=== PATIENT | male | born 1990 | race American Indian/Alaskan Native ===

== ENCOUNTER 2017-08-12 20:07 | Emergency (ER) | payer SELFPAY ==
--- NOTE | 2017-08-12 21:52 | Emergency Department Report ---
ED Fall HPI - General Chief Complaint: Fall Stated Complaint: FELL OFF LADDER Time Seen by Provider: 08/12/17 21:42 Source: patient Mode of arrival: Ambulatory - History of Present Illness Initial Comments: Patient is a 27 years old male with no significant past medical history he came in for an evaluation of after full patient stated that he was cleaning a roof and he fell off the ladder about 6 feet and landed on his back is complaining of headache neck and lower back pain. Patient stated that he think he passed out for approximately 2 minutes. Currently patient denying any muscle weakness no numbness or tingling sensation no bowel or bladder incontinence. MD Complaint: fall -: Sudden, This evening Fall From: other (from a ladder) When Fall Occurred: just prior to arrival Fall Witnessed: yes, by family Place Fall Occurred: other (work) Loss of Consciousness: yes Prolonged Down Time?: no Symptoms Prior to Fall: none Location: head, neck, back Severity scale (0 -10): 5 Quality: sharp - Related Data Allergies Allergy/AdvReac Type Severity Reaction Status Date / Time No Known Allergies Allergy Unverified 08/12/17 20:38 ED Review of Systems ROS: Stated complaint: FELL OFF LADDER Other details as noted in HPI Comment: All other systems reviewed and negative Constitutional: denies: chills, fever Respiratory: denies: cough, shortness of breath, SOB with exertion Cardiovascular: denies: chest pain, palpitations Gastrointestinal: denies: abdominal pain, nausea, vomiting Musculoskeletal: back pain. denies: joint swelling, arthralgia Skin: denies: rash Neurological: headache. denies: weakness, numbness, paresthesias, confusion, abnormal gait, vertigo ED Past Medical Hx - Past Medical History Previous Medical History?: No - Surgical History Past Surgical History?: No - Social History Smoking Status: Never Smoker Substance Use Type: None ED Physical Exam - General Limitations: No Limitations General appearance: alert, in no apparent distress - Head Head exam: Present: atraumatic, normocephalic - Eye Eye exam: Present: normal appearance, PERRL Pupils: Present: normal accommodation - ENT ENT exam: Present: normal exam, normal orophraynx, mucous membranes moist, TM's normal bilaterally, normal external ear exam - Neck Neck exam: Present: normal inspection, full ROM (decreased range of motion). Absent: tenderness, meningismus, lymphadenopathy, thyromegaly - Respiratory Respiratory exam: Present: normal lung sounds bilaterally. Absent: respiratory distress, wheezes, rales, rhonchi, stridor, chest wall tenderness, accessory muscle use, decreased breath sounds, prolonged expiratory - Cardiovascular Cardiovascular Exam: Present: regular rate, normal rhythm, normal heart sounds - GI/Abdominal GI/Abdominal exam: Present: soft, normal bowel sounds. Absent: distended, tenderness, guarding, rebound, rigid - Extremities Exam Extremities exam: Present: normal inspection, full ROM, normal capillary refill - Back Exam Back exam: Present: tenderness (lumbar), paraspinal tenderness. Absent: CVA tenderness (R), CVA tenderness (L), muscle spasm - Neurological Exam Neurological exam: Present: alert, oriented X3, CN II-XII intact, normal gait. Absent: motor sensory deficit - Skin Skin exam: Present: warm, intact, normal color ED Course Vital Signs 08/12/17 08/12/17 08/12/17 20:38 21:36 21:45 Temperature 97.9 F Pulse Rate 60 67 Respiratory 9 L Rate Blood Pressure 122/76 135/86 Blood Pressure [Right] O2 Sat by Pulse 99 100 100 Oximetry 08/12/17 21:46 Temperature 97.9 F Pulse Rate 54 L Respiratory 12 Rate Blood Pressure Blood Pressure 135/86 [Right] O2 Sat by Pulse 100 Oximetry - Reevaluation(s) Reevaluation #1: 08/12/17 23:10 Patient stated that he is feeling better about his CT results and advised to follow-up with his primary care physician ED Medical Decision Making - Lab Data Result diagrams: 08/12/17 21:41 08/12/17 21:41 - Radiology Data Radiology results: report reviewed CT brain, CT C-spine, CT lumbar unremarkable. Critical care attestation.: If time is entered above; I have spent that time in minutes in the direct care of this critically ill patient, excluding procedure time. ED Disposition Clinical Impression: Fall, Head injury Disposition: DC-01 TO HOME OR SELFCARE Is pt being admited?: No Condition: Stable Instructions: Minor Head Injury (ED) Referrals: PRIMARY CARE, [Primary Care Provider] - 3-5 Days
[2017-08-12 22:09] LABS: Anion Gap 13 mmol/L; BUN/Creatinine Ratio 7; Blood Urea Nitrogen 6 mg/dL (9-20); Calcium 8.8 mg/dL (8.4-10.2); Carbon Dioxide 29 mmol/L (22-30); Chloride 101.9 mmol/L (98-107); Glucose 84 mg/dL (75-100); Potassium 4.1 mmol/L (3.6-5.0); Sodium 140 mmol/L (137-145)
[2017-08-12 22:12] LABS: Hematocrit 38.9 % (35.5-45.6); Mean Corpuscular HGB Conc 33 % (32-34); Mean Corpuscular Hemoglobin 32 pg (28-32); Mean Corpuscular Volume 97 fl (84-94); Platelet Count 166 K/mm3 (140-440); Red Blood Count 4.02 M/mm3 (3.65-5.03); Red Cell Distribution Width 12.4 % (13.2-15.2); White Blood Count 4.1 K/mm3 (4.5-11.0)
[2017-08-12 22:13] LABS: Bilirubin,Urine NEG (Negative); Blood,Urine NEG (Negative); Ketones,Urine NEG (Negative); Leukocyte Esterase,Urine NEG (Negative); Mucus,Urine 3+ /HPF; Nitrite,Urine NEG (Negative)
--- NOTE | 2017-08-12 22:38 | Cat Scan Report ---
FINAL REPORT PROCEDURE: CT CERVICAL SPINE WO CON TECHNIQUE: Computerized tomography of the cervical spine was performed from the skull base to T1 without contrast material. HISTORY: NECK pain after fall COMPARISON: No prior studies are available for comparison. FINDINGS: The vertebral body heights and alignment are maintained. No acute fracture or subluxation is seen. Disc spaces are maintained. IMPRESSION: No acute fracture or subluxation is identified.
--- NOTE | 2017-08-12 22:43 | Cat Scan Report ---
FINAL REPORT PROCEDURE: CT HEAD/BRAIN WO CON TECHNIQUE: Computerized tomography of the head was performed without contrast material. HISTORY: S/P fall 6-9 Ft COMPARISON: No prior studies are available for comparison. FINDINGS: Skull and scalp: Normal. Paranasal sinuses: Mucosal thickening of the maxillary sinuses. Moderate fluid right mastoid mild fluid left mastoid Ventricles and subarachnoid spaces: Normal. Cerebrum: No evidence of hemorrhage, acute infarction or mass . Cerebellum and brainstem: No evidence of hemorrhage, acute infarction or mass. Vasculature: Normal. Comments: None. IMPRESSION: No acute intracranial bleed or fracture seen at this time
--- NOTE | 2017-08-12 22:44 | Cat Scan Report ---
FINAL REPORT PROCEDURE: CT LUMBAR SPINE WO CON TECHNIQUE: Computerized axial tomography of the lumbar spine was performed from T12 to the sacrum without contrast material. HISTORY: S/P fall 6-9 Ft. Back pain COMPARISON: No prior studies are available for comparison. FINDINGS: The vertebral body heights and alignment are maintained. No acute fracture or subluxation is seen. Disc spaces are preserved. No focal osseous lesion is seen. IMPRESSION: No acute fracture or subluxation is seen
[2017-08-12 22:50] LABS: Blastocytes % (Manual) 0 %
[2017-08-12 22:51] LABS: Diff Status Complete; Platelet Estimate Consistent w Auto; RBC Morphology Normal
[2017-08-12] MEDS ORDERED: TORADOL IM ONE (23:12)
[2017-08-12 23:35] VITALS: BP 113/61
== END 2017-08-12 23:51 | disposition home or self-care (01) ==
LOC: ED 20:07
DX: S09.90XA Unspecified injury of head, initial encounter (principal); M54.2 Cervicalgia; M54.5 Low back pain; W11.XXXA Fall on and from ladder, initial encounter; Y93.9 Activity, unspecified; Y99.9 Unspecified external cause status; Y92.89 Other specified places as the place of occurrence of the external cause
CPT/HCPCS: 36415; 70450; 72125; 72131; 80048; 81001; 85007; 85025; 96372; 99284; J1885